=== PATIENT | male | born 1980 | race Hispanic/Latino ===

== ENCOUNTER 2017-11-19 10:40 | Emergency (ER) | payer OTHER ==
[2017-11-19] MEDS ORDERED: Sodium Chloride 0.9% 1,000 ML IV SCH (11:15)
[2017-11-19 11:33] LABS: BASO % 0.1 % (0.0-2.0); HEMOGLOBIN 14.6 g/dL (12.0-18.0); LYMPH # 1.4 K/uL (1.0-4.3); LYMPH % 8.2 % (20.0-40.0); MEAN CELL VOLUME 88.9 fl (80.0-94.0); MEAN CORPUSCULAR HEMOGLOBIN 30.9 pg (27.0-31.0); MEAN CORPUSCULAR HGB CONC 34.8 g/dL (33.0-37.0); MEAN PLATELET VOLUME 7.9 fl (7.2-11.7); MONO # 1.9 K/uL (0.0-0.8); MONO % 10.7 % (0.0-10.0); NEUT # 14.3 K/uL (1.8-7.0); NRBC % 0.1 % (0.0-0.0); PLATELET COUNT 284 K/uL (130-400); RBC 4.73 Mil/uL (4.40-5.90); RED CELL DISTRIBUTION WIDTH 13.1 % (11.5-14.5); WHITE BLOOD COUNT 17.6 K/uL (4.8-10.8)
[2017-11-19 11:47] LABS: PARTIAL THROMBOPLASTIN TIME 27.1 Seconds (25.6-37.1); PROTHROMBIN TIME 11.5 Seconds (9.8-13.1)
--- NOTE | 2017-11-19 11:57 | RAD ---
Date of service: 11/19/2017 HISTORY: Code Stroke COMPARISON: No prior. FINDINGS: LUNGS: No active pulmonary disease. PLEURA: No significant pleural effusion identified, no pneumothorax apparent. CARDIOVASCULAR: The patient is rotated toward the left, accentuating right hilar vascular markings. No definite cardiomegaly or pulmonary vascular derangement appreciable at this time. OSSEOUS STRUCTURES: No significant abnormalities. VISUALIZED UPPER ABDOMEN: Normal. OTHER FINDINGS: None. IMPRESSION: No acute cardiopulmonary disease appreciated.
[2017-11-19] MEDS ORDERED: Chlorhexidine Gluconate 1 APPL/PKT TP ONE (12:21)
[2017-11-19] MEDS ORDERED: Iodixanol 320 MG/ML 100 ML BOTTLE IV ONE (12:22)
[2017-11-19] MEDS ORDERED: Sodium Chloride 0.9% 50 ML IV ONE (12:22)
--- NOTE | 2017-11-19 12:27 | ED PDOC ---
HPI:STROKE - Time Time: 10:45 - Historian Historian: Patient, Parent - Chief Complaint Chief Complaint: Slurred speech, Mental status change, Ataxia - Onset Date: 11/16/17 (headache, cannot confirm onset) - Timing Timing: Currently Symptomatic - Location Location: Speech - Severity of pain Maximum severity:: Moderate Severity Current: Moderate - Exacerbated by Exacerbated by:: Nothing - Relieved by Relieved by:: Nothing - TPA Positive for Contraindication: Yes Reason tPA is not being Administered: I[facility] - Notes: Notes:: 37yo male presents to ED with his parents and state he has dizziness, nausea and headache since thursday. States he had "food poisoning" this past weekend/ vomiting diarrhea, improved but dizziness persisted, went to urgent care yesterday told to drink more fluids, this morning had trouble ambulating, his called his parents who accompanied him to the ER. On arrival to ED noted slurred speech, he couldnt confirm onset of speech difficulties, thinks it was 2 -3 days ago. Denies focal weakness, numbness, change in vision or syncope. NIHSS Stroke Scale - Date/Time Evaluation Performed Date Performed: 11/19/17 Time Performed: 10:50 When Was NIHSS Performed: Baseline - How Severe is the Stroke Level of Consciousness: 0=Alert LOC to Questions: 0=Both comments correct LOC to commands: 0=Obeys both correctly Best Gaze: 0=Normal Visual: 0=No visual loss Facial: 0=Normal Motor Arm - Left: 0=No drift Motor Arm - Right: 0=No drift Motor Leg - Left: 0=No drift Motor Leg - Right: 0=No drift Limb Ataxia: 2=Present both Sensory: 0=Normal Best Language: 0=No aphasia Dysarthia: 1=Mild to moderate slurring Extinction & Inattention (Neglect): 0=Normal, no object Score: 3 Severity Of Stroke: 1-4 = Minor Stroke rTPA Inclusion/Exclusion - Refusal of Treatment Patient Refused Treatment: No - Inclusion Criteria for Altepase Patient is 18 years or Older: Yes The Clinical Diagnosis of Ischemic Stroke That is Causing a Potentially Disabling Neurological Deficit: No Time of Onset is Well Established to be Less Than 270 Minute Before Treatment Would Begin: No Risk/Benefit Discussed With Patient/Family Member Present: No Past Medical History Reviewed: Historical Data, Nursing Documentation, Vital Signs Vital Signs: Last Vital Signs Temp 98.8 F 11/19/17 10:47 Pulse 72 11/19/17 10:47 Resp 19 11/19/17 10:47 BP 155/89 H 11/19/17 10:47 Pulse Ox 97 11/19/17 10:47 - Medical History PMH: No Chronic Diseases - Surgical History Surgical History: No Surg Hx - Family History Family History: States: Unknown Family Hx - Living Arrangements Living Arrangements: With Family - Social History Current smoker - smoking cessation education provided: No Alcohol: Social - Immunization History Hx Tetanus Toxoid Vaccination: No Hx Influenza Vaccination: No Hx Pneumococcal Vaccination: No - Home Medications Home Medications: Ambulatory Orders Medication Instructions Recorded No Known Home Med 11/19/17 - Allergies Allergies/Adverse Reactions: Allergies Allergy/AdvReac Type Severity Reaction Status Date / Time Penicillins Allergy RASH Verified 11/19/17 12:46 nitrous oxide AdvReac Severe seizure Uncoded 11/19/17 12:50 Review of Systems ROS Statement: Except As Marked, All Systems Reviewed And Found Negative Constitutional: Negative for: Fever Cardiovascular: Negative for: Chest Pain, Palpitations Respiratory: Negative for: Shortness of Breath Gastrointestinal: Positive for: Nausea. Negative for: Abdominal Pain Genitourinary Male: Negative for: Dysuria Musculoskeletal: Negative for: Neck Pain Skin: Negative for: Rash, Lesions Neurological: Positive for: Incoordination, Change in Speech, Altered Mental Status, Headache, Dizziness. Negative for: Weakness, Numbness, Confusion Psych: Negative for: Depression Physical Exam - Reviewed Nursing Documentation Reviewed: Yes Vital Signs Reviewed: Yes - Physical Exam Appears: Positive for: Non-toxic Head Exam: Positive for: ATRAUMATIC, NORMAL INSPECTION, NORMOCEPHALIC Skin: Positive for: Normal Color, Warm, DRY Eye Exam: Positive for: EOMI, Normal appearance, PERRL ENT: Positive for: Normal ENT Inspection Neck: Positive for: Normal, Painless ROM Cardiovascular/Chest: Positive for: Regular Rate, Rhythm Respiratory: Positive for: CNT, Normal Breath Sounds Gastrointestinal/Abdominal: Positive for: Normal Exam, Soft Back: Positive for: Normal Inspection Extremity: Positive for: Normal ROM DTR - Knee (R): 2+ DTR - Knee (L): 2+ Neurologic/Psych: Positive for: Alert, 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 Negative for: Aphasia - Laboratory Results Result Diagrams: 11/19/17 11:20 11/19/17 11:20 - ECG O2 Sat by Pulse Oximetry: 97 Medical Decision Making Medical Decision Making: not candidate for code stroke given symptoms ongoing for several days and cannot confirm precise onset CT brain, labwork, EKG, houseperson initiated Accession No. : [id number] Patient Name / ID : DESMOND BENITEZ / [id number] Exam Date : 11/19/2017 11:26:52 ( Approved ) Study Comment : Sex / Age : M / 37Y Creator : Cesar Child MD Dictator : Cesar Child MD Shank Stitcher : [employer] Supervisor : Cesar Child MD Approver2 : Report Date : 11/19/2017 12:27:39 My Comment : Date of service: 11/19/2017 PROCEDURE: CT HEAD WITHOUT CONTRAST. HISTORY: slurred speech x1-2 days, headache COMPARISON: None available. TECHNIQUE: Axial computed tomography images were obtained through the head/brain without intravenous contrast. Radiation dose: Total exam DLP = 1379.35 mGy-cm. This CT exam was performed using one or more of the following dose reduction techniques: Automated exposure control, adjustment of the mA and/or kV according to patient size, and/or use of iterative reconstruction technique. FINDINGS: HEMORRHAGE: There is acute hemorrhage in the cerebellum predominantly in left cerebellar hemisphere but extending across the midline in the vermis. No other hemorrhage is appreciated elsewhere. There is no extra-axial or intraventricular hemorrhage appreciated. BRAIN: No intracranial mass identified. No evidence of acute infarct. VENTRICLES: Mild ventriculomegaly. Suspect mass-effect upon the aqueduct of Sylvius as a result of cerebellar hemorrhage and edema. CALVARIUM: Unremarkable. PARANASAL SINUSES: Unremarkable as visualized. No significant inflammatory changes. MASTOID AIR CELLS: Unremarkable as visualized. No inflammatory changes. OTHER FINDINGS: None. IMPRESSION: Cerebellar hemorrhage. Mild ventriculomegaly. No additional abnormality. 1215pm d/w Dr Thorne director of curriculum and instruction neurology rec CTA brain and neurosurgery eval. Dr Wooten/[facility] paged approx 1220p Given slurred speech, fail swallow eval rectal tylenol ordered for headache Labs reviewed, elevated WBC, normal INR and platelets, mild hyponatremia. D/w Dr Glasgow who recommended transfer to [place] Dr Brar D/w Dr Kei Franklin and Dr Brar (scrubbed) who accepted ED/ED. Arrangements made for stat transfer Patient and parents updated on results and plan, in agreement for transfer. CTA results reviewed, no obvious aneurysm I discussed w Dr Franklin neurosurgery at [place] and ED PA who accepted patient under Dr Franklin ALS transport stat Results explained to patient and family, left ED w stable vitals and neurologic baseline. Disposition - Clinical Impression Clinical Impression: Episode of generalized weakness - Patient ED Disposition Is Patient to be Admitted: No Counseled Patient/Family Regarding: Studies Performed, Diagnosis, Need For Followup - Disposition Disposition: Other Institution Disposition Time: 13:30 Condition: FAIR Forms: [employer] (Sudanese) - Pt Status Changed To: Hospital Disposition Of: Inpatient ([place]) - Admit Certification Admit to Inpatient:: After my assessment, the patient will require hospitalization for at least two midnights. This is because of the severity of symptoms shown, intensity of services needed, and/or the medical risk in this patient being treated as an outpatient. - POA Present On Arrival: None
[2017-11-19 12:48] LABS: BARBITURATES, UR NEGATIVE (NEGATIVE); BENZODIAZEPINES, UR NEGATIVE (NEGATIVE); OPIATES, UR NEGATIVE (NEGATIVE)
[2017-11-19 12:49] LABS: PHENCYCLIDINE, UR NEGATIVE (NEGATIVE)
[2017-11-19 12:52] LABS: ALB/GLOB RATIO 1.4 (1.0-2.1); ALBUMIN 4.8 g/dL (3.5-5.0); ALT/SGPT 22 U/L (21-72); AST/SGOT 22 U/L (17-59); BLOOD UREA NITROGEN 5 mg/dl (9-20); CALCIUM 9.5 mg/dL (8.4-10.2); GFR AFRICAN-AMERICAN > 60; GFR NON-AFRICAN AMERICAN > 60; HDL CHOLESTEROL 55 MG/DL (30-70); LDL CHOLESTEROL 117 mg/dL (0-129)
[2017-11-19 12:59] LABS: LYMPHOCYTE 7 % (20-50); MONOCYTE 7 % (0-10); NEUTROPHIL 86 % (42-75); PLATELET ESTIMATE NORMAL (NORMAL); TOTAL CELLS COUNTED 100
--- NOTE | 2017-11-19 13:46 | CT ---
Date of service: 11/19/2017 PROCEDURE: CT Angiography of the Brain and Neck. HISTORY: cerebellar bleed COMPARISON: Noncontrast head CT 11/19/2017. TECHNIQUE: CT angiography of the intracranial and neck arteries was performed. Coronal and sagittal maximum intensity projection reformatted images were generated. Contrast Dose: Visipaque 320, 99 cc Radiation dose:Total exam DLP = 450.16 mGy-cm. This CT exam was performed using one or more of the following dose reduction techniques: Automated exposure control, adjustment of the mA and/or kV according to patient size, and/or use of iterative reconstruction technique. FINDINGS: INTERNAL CEREBRAL ARTERIES: The skull base, petrous, cavernous and supraclinoid segments are bilaterally widely patent without stenosis or occlusion apparent. ANTERIOR CEREBRAL ARTERIES: Unremarkable. A1 and A2 segments are widely patent. Smaller distal branches unremarkable, as visualized. MIDDLE CEREBRAL ARTERIES: Unremarkable. M1 and M2 segments are widely patent. Perisylvian branches grossly symmetric. POSTERIOR CIRCULATION: Basilar Artery: Widely patent without significant stenosis. Distal Vertebral Arteries: Codominant vertebrobasilar circulation evident. No significant stenosis is appreciate throughout the distal vertebral arteries bilaterally. Posterior Cerebral Arteries: Unremarkable. Posterior Inferior Cerebellar Arteries: Unremarkable. NECK CTA: Common Carotid arteries: The bilateral common carotid appear widely patent from their origins to their bifurcations with no significant stenosis appreciated. No evidence to suggest common carotid artery dissection. Internal Carotid arteries: No significant stenosis is appreciated throughout the cervical internal carotid artery segments bilaterally and there is no evidence of dissection either. External Carotid arteries: Appear unremarkable bilaterally. Vertebral arteries: The bilateral vertebral arteries appear normal in caliber from their origins to their junction with the basilar artery. No significant stenosis or definite pattern of dissection. ANEURYSM/ VASCULAR MALFORMATIONS: No definitive aneurysm or arteriovenous malformation appreciated throughout the head or neck, including the posterior fossa. OTHER FINDINGS: Note is made of intraparenchymal hemorrhage posterior fossa. IMPRESSION: 1. No definitive arteriovenous malformation or aneurysm appreciated throughout the head or neck arterial vasculature as discussed above. The visualized neck and intracranial arterial circulation is unremarkable appearing. 2. Incidental left cerebellar and vermian intraparenchymal hemorrhage, with mild obstructive hydrocephalus identified.
--- NOTE | 2017-11-19 15:01 | CARD ---
APPROVED REPORT Date of service: 11/19/2017 EKG Measurement Heart [id number] <Conclusion> Normal sinus rhythm Normal ECG
[2017-11-19 15:10] VITALS: BP 132/80; PULSE 76; RESP 21; TEMP 98.8
[2017-11-22 19:07] VITALS: O2SAT 97
== END 2017-11-19 15:10 | disposition short-term general hospital (02) ==
LOC: H.ER 10:40
DX: M62.81 Muscle weakness (generalized) (principal); D72.829 Elevated white blood cell count, unspecified; R41.82 Altered mental status, unspecified; R27.0 Ataxia, unspecified; R47.1 Dysarthria and anarthria; E87.1 Hypo-osmolality and hyponatremia; G93.89 Other specified disorders of brain; Z88.0 Allergy status to penicillin
CPT/HCPCS: 70450; 70496; 70498; 71045; 80053; 80061; 80320; 80324; 80345; 80346; 80349; 80353; 80358; 80361; 82607; 82948; 83036; 83735; 83992; 84100; 84484; 85025; 85610; 85730; 86850; 86900; 93005; 99284; J7030; Q9967